=== PATIENT | female | born 1975 | race Caucasian/White ===

== ENCOUNTER → 2017-04-30 15:20 | Emergency (ER) | payer OTHER ==
[~2017-04-30 15:20] MED LIST: Clindamycin CAP* 150 MG PO ONE
--- NOTE | 2017-04-30 17:41 | ED ---
Miguel Kent Rebecca, scribed for Hayley Hendrickson MD on 04/30/17 at 1707 . Throat Pain/Nasal Congestion - HPI Summary HPI Summary: Pt is a 41 y/o F BIBA who presents to ED c/o R-sided dental pain. Sx began at 0300 this morning, waking her up from sleep, and have been constant since onset. Pain is severe, ranked 10/10. Sx aggravated and alleviated by nothing, unchanged by Tylenol and Ibuprofen, last took both at 1500 (400 mg). Has not tried ice and Orajel. Additionally c/o R ear pain. States she has 2 teeth that need to be removed and has had repeated dental pain. Pt states was last on abx approx 2 months ago for same. Pt is current under treatment for opiate addiction (percocet) at [facility]. Pt scheduled to be there for another 1-2 weeks. Has a dentist, but is unsure of when she will be seeing them - dentist in [place]. multiple cavities, broken teeth. PMHx dental infections. - History of Current Complaint Chief Complaint: EDDentalPain Hx Obtained From: Patient Onset/Duration: Lasting Hours, Still Present Severity: Severe - 10/10 - Allergies/Home Medications Allergies/Adverse Reactions: Allergies Allergy/AdvReac Type Severity Reaction Status Date / Time Amoxicillin Allergy Hives Verified 04/30/17 15:22 Codeine Allergy Hives Verified 04/30/17 15:22 PMH/Surg Hx/FS Hx/Imm Hx Previously Healthy: Yes Endocrine/Hematology History: Denies: Hx Diabetes Cardiovascular History: Denies: Hx Coronary Artery Disease, Hx Hypertension Infectious Disease History: Yes Infectious Disease History: Denies: Traveled Outside the [place] in Last 30 Days - Family History Known Family History: Negative: Cardiac Disease - Social History Occupation: Unemployed Alcohol Use: Occasionally Hx Substance Use: Yes - Pt currently residing at [facility] Substance Use Type: Reports: Prescribed, Other Hx Tobacco Use: No Smoking Status (MU): Unknown if Ever Smoked Review of Systems Negative: Fever Eyes: Negative Positive: Dental Pain - Right-sided, Ear Ache - Right Cardiovascular: Negative Respiratory: Negative Gastrointestinal: Negative Genitourinary: Negative Musculoskeletal: Negative Skin: Negative All Other Systems Reviewed And Are Negative: Yes Physical Exam Triage Information Reviewed: Yes Vital Signs On Initial Exam: Initial Vitals Temp Pulse Resp BP Pulse Ox 98.7 F 86 16 122/75 98 04/30/17 15:23 04/30/17 15:23 04/30/17 15:23 04/30/17 15:23 04/30/17 15:23 Vital Signs Reviewed: Yes Appearance: Positive: Well-Appearing, Pain Distress - mild Skin: Positive: Warm, Skin Color Reflects Adequate Perfusion, Dry Eyes: Positive: Normal ENT: Positive: Hearing grossly normal, Pharynx normal, TMs normal, Dental tenderness. Negative: Nasal congestion Dental: Positive: Other - Pt with multiple cavities, broken teet upper #4/5 - broken at gumline No fluctuance No erythema No crepitus No edema of gum or cheek Neck: Positive: Supple, Nontender, No Lymphadenopathy Respiratory/Lung Sounds: Positive: Clear to Auscultation, Breath Sounds Present Cardiovascular: Positive: Normal, RRR. Negative: Murmur Abdomen Description: Positive: Nontender, No Organomegaly, Soft Bowel Sounds: Positive: Present Musculoskeletal: Positive: Normal Neurological: Positive: Normal, Sensory/Motor Intact, Alert, Oriented to Person Place, Time Psychiatric: Positive: Normal AVPU Assessment: Alert - [place] Coma Scale Best Eye Response: 4 - Spontaneous Best Motor Response: 6 - Obeys Commands Best Verbal Response: 5 - Oriented Diagnostics - Vital Signs Vital Signs Temp Pulse Resp BP Pulse Ox 04/30/17 15:30 98.0 F 78 18 129/77 99 04/30/17 15:23 98.7 F 86 16 122/75 98 - Laboratory Lab Statement: Any lab studies that have been ordered have been reviewed, and results considered in the medical decision making process. EENT Course/Dx - Course Assessment/Plan: Patient medications reviewed this visit. Pt presents from [facility] with report of pain in recurrent right upper dental pain with radiation to right ear. No edema, erythema, warmth. Pt with diffusely poor dentition. TTP gumline at #4, 5. Pt currently in [facility] for opiate addiction. Will start clinda. motrin/apap. salt water soaks. recommend make an appt with dental when complete [facility] program - Diagnoses Provider Diagnoses: Pain, dental Discharge - Discharge Plan Condition: Stable Disposition: HOME Prescriptions: Clindamycin Cap(NF) [Cleocin 300 mg Cap(NF)] 300 mg PO TID #30 cap Referrals: No Primary Care Phys,NOPCP [Primary Care Provider] - Additional Instructions: - stay well hydrated. Drink plenty of non-caffinated beverages - okay to alternate ibuprofen (Advil, motrin) 600mg and tylenol 1000mg every 3 hours for pain. Take with food - Take antibiotics as prescribed until gone - warm salt water swish and spit is important - okay to apply ice (wrapped in a towel) to your cheek - Contact your dentist and arrange a follow-up appointment The documentation as recorded by the Miguel bolden Rebecca accurately reflects the service I personally performed and the decisions made by me, Hayley Hendrickson MD.
[2017-04-30 17:49] VITALS: BP 122/69
== END | disposition home or self-care (01) ==
LOC: ED 15:20
DX: K08.89 Other specified disorders of teeth and supporting structures (principal); Z88.0 Allergy status to penicillin; Z88.5 Allergy status to narcotic agent
CPT/HCPCS: 99281; A9270-GY